=== PATIENT | male | born 1980 | race Two or more races ===

== ENCOUNTER 2021-11-19 16:13 | Emergency (ER) | payer SELFPAY ==
[~2021-11-19] VITALS: Ht 167.6 cm; Wt 75.0 kg
[2021-11-19 16:38] VITALS: BP 119/84
[2021-11-19] MEDS ORDERED: DIPHTH,PERTUSS(ACELL),TET TOX 0.5 ML DISP.SYRIN. VAX IM ONE ×2 (16:43→17:00)
[2021-11-19] MEDS ORDERED: LIDOCAINE 1% Multi-Dose 20 ML VIAL. INJ ONE (16:45)
--- NOTE | 2021-11-19 17:11 | RAD ---
Exam: Left hand 3 views INDICATION: Thumb laceration TECHNIQUE: Frontal, lateral and oblique views of the left hand Comparisons: None FINDINGS: Bone mineralization is normal. No acute or healed fractures. Soft tissues are unremarkable. Joint spa shay are well-maintained. IMPRESSION: No acute osseous abnormality. Electronically signed by: Miri Pardo MD (11/19/2021 5:08 PM) [place]
--- NOTE | 2021-11-19 17:45 | PHYS DOC ---
Past Medical History Past Surgical History: No Surgical History General Adult EDM: Chief Complaint: LACERATION/AVULSION HPI: HPI: Patient is a 41 year old right-handed male who presents the ED today with left hand laceration, patient states he accidentally cut himself with a knife. Review of Systems: Review of Systems: Constitutional: Denies fever or chills. [] Musculoskeletal: Denies back pain or joint pain. [] Integument: Reports left hand laceration Neurologic: Denies headache, focal weakness or sensory changes. [] Psychiatric: Denies depression or anxiety. [] Heart Score: C/O Chest Pain: N/A Risk Factors: Risk Factors: DM, Current or recent (<one month) smoker, HTN, HLP, family history of CAD, obesity. Risk Scores: Score 0 - 3: 2.5% MACE over next 6 weeks - Discharge Home Score 4 - 6: 20.3% MACE over next 6 weeks - Admit for Clinical Observation Score 7 - 10: 72.7% MACE over next 6 weeks - Early Invasive Strategies Current Medications: Current Medications Medications (Trade) Dose Ordered Sig/Lu Start Time Stop Time Status Last Admin Dose Admin Diphtheria/ Tetanus/Acell Pertussis (Boostrix) 0.5 ml ONCE ONCE 11/19/21 17:00 11/19/21 17:01 DC 11/19/21 17:18 0.5 ML Lidocaine HCl (Lidocaine 1% 20ml Vial) 20 ml 1X ONCE 11/19/21 16:45 11/19/21 16:46 DC 11/19/21 16:56 20 ML Allergies: Allergies: Allergies Coded Allergies Type Severity Reaction Last Updated Verified No Known Drug Allergies 11/19/21 No Physical Exam: PE: Constitutional: Well developed, well nourished, no acute distress, non-toxic appearance. [] Skin: Left lateral thumb proximal thumb with a laceration approximately 4 cm long, there is no tendon involvement. Full range of motion to the left hand and fingers. +2 left radial pulse. Adequate radial, medial, ulnar incision to the left hand. Cap refill less than 2 seconds to left thumb Back: No tenderness, no CVA tenderness. [] Extremities: No tenderness, no cyanosis, no clubbing, ROM intact, no edema. [] Neurologic: Alert and oriented X 3, normal motor function, normal sensory function, no focal deficits noted. [] Psychologic: Affect normal, judgement normal, mood normal. [] Current Patient Data: Vital Signs: Vital Signs Date Time Temp Pulse Resp B/P (MAP) Pulse Ox O2 Delivery O2 Flow Rate FiO2 11/19/21 16:38 98.0 75 18 119/84 (96) 99 Room Air 98.0 EKG: EKG: [] Radiology/Procedures: Radiology/Procedures: []PROCEDURE: HAND LEFT 3V Exam: Left hand 3 views INDICATION: Thumb laceration TECHNIQUE: Frontal, lateral and oblique views of the left hand Comparisons: None FINDINGS: Bone mineralization is normal. No acute or healed fractures. Soft tissues are unremarkable. Joint spaces are well-maintained. IMPRESSION: No acute osseous abnormality. Electronically signed by: Miri Vasquez MD (11/19/2021 5:08 PM) [facility] DICTATED and SIGNED BY: MIRI VASQUEZ MD DATE: 11/19/21 [id number] 0 Laceration/Wound Repair Wound Location: Left arm Wound's Depth, Shape: Vertical Wound Length (cm): Approximately 4 cm Wound Explored: clean Irrigated w/ Saline (ccs): 100 Betadine Prep?: Yes Anesthesia: 1% of lidocaine Volume Anesthetic (ccs): Approximately 4 cc Wound Repaired With: Ethilon Suture Size/Type: 4.0/interrupted sutures Number of Sutures: 9 Progress :wound was covered with nonstick dressing Course & Med Decision Making: Course & Med Decision Making Pertinent Labs and Imaging studies reviewed. (See chart for details) This is a 41-year-old male patient presenting to the ED today with left hand laceration that was closed by me as noted in procedures. Wound care instructions and return precautions provided. Tetanus updated. Left hand x- rays are negative for any acute findings. Executive Admin line used for Frisian Cora Disclaimer: Dragon Disclaimer: This electronic medical record was generated, in whole or in part, using a voice recognition dictation system. Departure Departure Impression: Primary Impression: Laceration of left hand Qualified Codes: S61.412A - Laceration without foreign body of left hand, initial encounter Disposition: HOME / SELF CARE / HOMELESS Condition: STABLE Referrals: NO PCP (PCP) seguimiento con ER en 7 pardo para que se retiren los leonela Patient Instructions: Laceration Care, Adult Additional Instructions: Retire el vendaje maana por la tarde. Puede freddie el zuhair segn sea necesario con agua y jabn. Aplicar neosporin en la joann dos veces al da baltazar 7 pardo. Controle el zuhair en busca de signos de infeccin leno enrojecimiento, drenaje tibio o amarillo y regrese a la noah de emergencias si Ocurren.seguimiento con ER en 7 pardo para que se retiren los puntos ABHI NOBLES LOAN SUPERVISOR Nov 19, 2021 17:45
== END 2021-11-19 17:56 | disposition home or self-care (01) ==
LOC: ER 16:13
DX: S61.412A Laceration without foreign body of left hand, initial encounter (principal); W26.0XXA Contact with knife, initial encounter; Y93.89 Activity, other specified; Y92.89 Other specified places as the place of occurrence of the external cause; Y99.8 Other external cause status
CPT/HCPCS: 12011; 73130; 90471; 90715; 99284; J3490

== ENCOUNTER 2021-11-28 09:27 | Emergency (ER) | payer SELFPAY ==
[~2021-11-28] VITALS: Ht 170.2 cm; Wt 80.1 kg
[2021-11-28 09:31] VITALS: BP 109/43
--- NOTE | 2021-11-28 09:47 | PHYS DOC ---
Past Medical History Past Surgical History: No Surgical History General Adult EDM: Chief Complaint: WOUND RECHECK/SUTURE REMOVAL HPI: HPI: Patient is a 41-year-old male who presents to the emergency department today for suture removal. Patient had 9 sutures placed in his left palm 9 days ago in this emergency department. He denies any fevers, decreased range of motion or decreased sensation to his extremity. Review of Systems: Review of Systems: Constitutional: See HPI Musculoskeletal: See HPI Integument: See HPI Neurologic: See HPI Heart Score: C/O Chest Pain: N/A Risk Factors: Risk Factors: DM, Current or recent (<one month) smoker, HTN, HLP, family history of CAD, obesity. Risk Scores: Score 0 - 3: 2.5% MACE over next 6 weeks - Discharge Home Score 4 - 6: 20.3% MACE over next 6 weeks - Admit for Clinical Observation Score 7 - 10: 72.7% MACE over next 6 weeks - Early Invasive Strategies Allergies: Allergies: Allergies Coded Allergies Type Severity Reaction Last Updated Verified No Known Drug Allergies 11/19/21 No Physical Exam: PE: Constitutional: Well developed, well nourished, no acute distress, non-toxic appearance. [] HENT: Normocephalic, atraumatic, bilateral external ears normal, oropharynx moist, no oral exudates, nose normal. [] Eyes: PERRL, EOMI, conjunctiva normal, no discharge. [] Neck: Normal range of motion, no tenderness, supple, no stridor. [] Cardiovascular: Normal peripheral perfusion Lungs & Thorax: Normal work of breathing, no tachypnea Abdomen: Soft and flat Skin: Warm, dry, no erythema, no rash, 9 sutures noted to patient's left palm that are intact, wound is well approximated without any signs of infection like redness, warmth, swelling or drainage, range of motion intact, neuro intact [] Back: Normal range of motion Extremities: No tenderness, no cyanosis, no clubbing, ROM intact, no edema. [] Neurologic: Alert and oriented X 3, normal motor function, normal sensory function, no focal deficits noted. [] Psychologic: Affect normal, judgement normal, mood normal. [] EKG: EKG: [] Radiology/Procedures: Radiology/Procedures: [] Course & Med Decision Making: Course & Med Decision Making Pertinent Labs and Imaging studies reviewed. (See chart for details) Patient presents to the emergency department today for suture removal. Patient had sutures placed in his palm 9 days ago. Wound is well approximated without any signs of infection. Sutures were removed, patient tolerated procedure. I discussed with patient all findings as well as the need to follow-up with PCP for further evaluation and treatment or return to the ER if any new or worsening symptoms. Strict return precautions were also discussed at length. Patient voiced understanding and agreement with the plan. Patient is hemodynamically stable at the time of disposition. Dragon Disclaimer: Dragon Disclaimer: This electronic medical record was generated, in whole or in part, using a voice recognition dictation system. Departure Departure Impression: Primary Impression: Encounter for removal of sutures Disposition: HOME / SELF CARE / HOMELESS Condition: GOOD Referrals: NO PCP (PCP) Patient Instructions: Suture Removal Additional Instructions: Hoy lo atienden en el departamento de emergencias para que le retiren las suturas. Tu laceracin argueta sanado jenny. Asegrese de continuar manteniendo usama sitio limpio y seco. Controle cualquier signo de infeccin que incluya enrojecimiento, calor, hinchazn o drenaje. Seguimiento con morales proveedor de atencin primaria segn sea necesario. Regrese al departamento de emergencias si presenta alguno de los signos de infeccin, aumento del dolor, disminucin de la capacidad para retail account specialist la mano o disminucin de la sensacin. ASHTYN UMANA APPLICATION PACKAGING SPECIALIST Nov 28, 2021 09:47
== END 2021-11-28 10:04 | disposition home or self-care (01) ==
LOC: ER 09:27
DX: S61.412D Laceration without foreign body of left hand, subsequent encounter (principal); X58.XXXD Exposure to other specified factors, subsequent encounter
CPT/HCPCS: 99281